=== PATIENT | female | born 1995 | race African-American/Black ===

== ENCOUNTER 2018-05-13 01:24 | Emergency (ER) | payer OTHER ==
[~2018-05-13] VITALS: Ht 162.6 cm; Wt 61.8 kg
[2018-05-13 01:56] LABS: BASO # 0.1 10^3/uL (0.0-0.2); BASO % 0.7 % (0.0-1.0); EOS # 0.2 10^3/uL (0.0-0.50); EOS % 2.8 % (0.0-3.0); HEMATOCRIT 38.2 % (36.0-47.0); HEMOGLOBIN 12.4 g/dl (12.0-15.5); MEAN CORPUSCULAR HEMOGLOBIN 26.9 pg (27.0-33.0); MEAN CORPUSCULAR HGB CONC 32.5 g/dl (32.0-36.5); MEAN CORPUSCULAR VOLUME 82.9 fl (80.0-96.0); MONO # 0.6 10^3/uL (0.0-0.8); MONO % 8.1 % (0.0-5.0); NEUTROPHILS # 3.7 10^3/uL (1.8-7.7); NEUTROPHILS % 49.3 % (36.0-66.0); PLATELET COUNT, AUTOMATED 283 10^3/uL (150-450); RED BLOOD COUNT 4.61 10^6/uL (4.00-5.40); WHITE BLOOD COUNT 7.6 10^3/uL (4.0-10.0)
[2018-05-13 03:54] LABS: CHLAMYDIA DNA AMPLIFICATION NEGATIVE (NEGATIVE); GC DNA AMPLIFICATION NEGATIVE (NEGATIVE)
--- NOTE | 2018-05-13 04:15 | REPVR ---
EXAM: US First Trimester, Transabdominal EXAM DATE/TIME: 05/13/2018 3:17 AM CLINICAL HISTORY: 22 years old, female; Signs and symptoms; Lmp or gestational age (in weeks): 04/04/2019; Other: Bleeding and cramping; Patient HX: Quant <10; Additional info: Vaginal bleeding TECHNIQUE: Real-time transabdominal obstetrical ultrasound of the maternal pelvis and a first trimester , less than 14 weeks 0 days, with image documentation. COMPARISON: No relevant prior studies available. FINDINGS: GESTATION: Gestation: No gestational sac is seen. MATERNAL: Uterus: The uterus measures 7.6 cm in its cephalocaudad dimension and 3.0 x 4.3 cm in its AP and lateral dimensions. The endometrium measures 6 mm. No intrauterine gestational sac is seen. Cervix: Unremarkable. Right adnexa: The right ovary measures 3.0 x 2.4 x 1.8 cm and demonstrates blood flow with a resistive index of 0.59. Left adnexa: The left ovary measures 2.5 x 1.6 x 1.5 cm and demonstrates blood flow with a resistive index of 0.61. Intraperitoneal: No intraperitoneal free fluid. IMPRESSION: 1. No intrauterine gestational sac is seen. Findings may reflect recent spontaneous AB or very early intrauterine gestation. Ectopic is not excluded. Serial beta-hCG levels may be of benefit. 2. Otherwise negative pelvic sonogram. Electronically signed by: Fabrice Will On 05/13/2018 04:14:27 AM
[2018-05-13 04:46] VITALS: BP 108/71
== END 2018-05-13 04:56 | disposition home or self-care (01) ==
LOC: M ED 01:24
DX: O20.0 Threatened abortion (principal); Z87.59 Personal history of other complications of pregnancy, childbirth and the puerperium; O99.519 Diseases of the respiratory system complicating pregnancy, unspecified trimester

== ENCOUNTER 2019-01-02 21:24 | Emergency (ER) | payer OTHER ==
[~2019-01-02] VITALS: Ht 162.6 cm; Wt 71.4 kg
[2019-01-02 21:25] VITALS: BP 122/65
== END 2019-01-02 22:17 | disposition left against medical advice (07) ==
LOC: M ED 21:24
DX: Z53.21 Procedure and treatment not carried out due to patient leaving prior to being seen by health care provider (principal)

== ENCOUNTER → 2019-01-03 | Outpatient (REF) | payer OTHER ==
[2019-01-03 18:43] LABS: CHLAMYDIA DNA AMPLIFICATION NEGATIVE (NEGATIVE); GC DNA AMPLIFICATION NEGATIVE (NEGATIVE)
== END ==
LOC: M LAB REF 16:18
PROVIDERS: ATTEND Physician Assistant
DX: Z11.3 Encounter for screening for infections with a predominantly sexual mode of transmission (principal)

== ENCOUNTER → 2019-02-19 | Outpatient (CLI) | payer OTHER ==
--- NOTE | 2019-02-19 15:50 | REP ---
Third trimester obstetric ultrasound for size/date discrepancy: There is a single intrauterine gestation in a vertex presentation. There is movement and cardiac activity. The heart rate is 132 beats per minute. The placenta is fundal. There is no previa or abruptio. The placenta is grade II. Subjectively the amniotic fluid volume is normal. The amniotic fluid index is 15.5 (7.7 - 24.9). The cervix measures 2.7 cm length. By today's ultrasound the gestational age is 33 weeks 5 days/OTTONIEL 04/04/2019. By LMP gestational age is 36 weeks 1 day/OTTONIEL 03/18/2019. weight is 2196 grams/4 pounds, 13 ounces. This is the 8th percentile for 36 weeks 1 day. Umbilical artery Doppler assessment: S/D ratio 2.50 (2.30-3.30) Resistive Index 0.60 (0.59-0.75 Diastolic Velocity 17.8 (>10 cm/sec) Survey of anatomy is unremarkable except that the choroid plexus, cerebellum and upper extremities could not be adequately demonstrated because of position. Electronically Signed by Pete Holguin MD 02/19/2019 03:42 P
== END ==
LOC: M RAD 14:13
PROVIDERS: ATTEND Registered Nurse Maternal Newborn
DX: Z34.83 Encounter for supervision of other normal pregnancy, third trimester (principal); Z3A.36 36 weeks gestation of pregnancy

== ENCOUNTER → 2019-02-28 | Outpatient (CLI) | payer OTHER ==
--- NOTE | 2019-02-28 08:28 | REP ---
Clinical: well-being Comparison: 02/19/2019 . Findings: Examination demonstrates a single live intrauterine in cephalic presentation. motion is identified by technologist. Placenta is noted posterior and grade I I without evidence for placenta previa or abruption. Amniotic fluid volume is normal. Cervix measures 2.7 cm in length and appears closed. No evidence for nuchal cord. Gestational age by LMP 37 weeks 3 days with OTTONIEL 03/18/2019 . Gestational age by current measurements 34 weeks 5 days with OTTONIEL 04/06/2019 . FHR equals 157 beats per minute. BPD 8.6 cm 34 weeks 5 days HC 30.4 cm 33 weeks 5 days AC 31.4 cm 35 weeks 2-day FL 6.8 cm 35 weeks 0 days HL 6.0 cm 35 weeks 0 days HC/AC ratio 0.97 Estimated weight 2568 grams ( 17th percentile). Amniotic fluid index: 8.8 cm (7.4 - 24.2) Umbilical cord SD ratio: 2.74 (1.60 - 2.60) MCA SD ratio: 3.11 MCA RI: 0.68 Impression: Single live intrauterine in cephalic presentation demonstrating appropriate interval growth. Electronically Signed by Danielito Valenzuela MD 02/28/2019 08:19 A
== END ==
LOC: M RAD 07:05
PROVIDERS: ATTEND Registered Nurse Maternal Newborn
DX: Z34.83 Encounter for supervision of other normal pregnancy, third trimester (principal)

== ENCOUNTER 2019-03-24 21:58 | Outpatient (CLI) | payer OTHER ==
[~2019-03-24] VITALS: Ht 162.6 cm; Wt 78.3 kg
[2019-03-24 22:08] VITALS: BP 136/70
[2019-03-24] MEDS ORDERED: IRON1TAB2 PO (22:11)
[2019-03-24] MEDS ORDERED: MULTTAB20 PO (22:11)
[2019-03-24] MEDS ORDERED: VITA250T4 PO (22:11)
--- NOTE | 2019-03-24 23:20 | IPNPDOC ---
Text Note Date of Service The patient was seen on 03/24/19. NOTE patient is a 23 yo @ 40+6WKS gestation presents with concern for vaginal bleeding. reports light bleeding when she goes to bathroom. feeling irregular mild contractions. +FM. vitals: normal NAD abd: gravid, soft, nt, cephalic by jerry fht: 145/mod lb/pos accel/no decel toco: ctx q 7mins ce (nursing exam): 2/50/-2, no blood noted. a/p patient in latent labor. discussed return precautions. return when having regular contractions. she has scheduled induction for tomorrow. DO Ginette VS,Ramone, I+O VS, Fishbone, I+O Vital Signs Date Time Temp Pulse Resp B/P (MAP) Pulse Ox O2 Delivery O2 Flow Rate FiO2 03/24/19 22:08 98.6 71 16 136/70 (92) MIGUEL WORLEY DO Mar 24, 2019 23:20
[2019-03-27] MEDS ORDERED: ACET1TAB55 PO (07:22)
[2019-03-27] MEDS ORDERED: IBUP80TA PO (07:22)
== END 2019-03-24 23:20 | disposition home or self-care (01) ==
LOC: M LDO 21:58
PROVIDERS: ATTEND Obstetrics & Gynecology
DX: O26.853 Spotting complicating pregnancy, third trimester (principal); Z3A.40 40 weeks gestation of pregnancy
CPT/HCPCS: 59025; G0378; G0463

== ENCOUNTER → 2019-09-29 | Outpatient (REF) | payer OTHER ==
[~2019-09-29] MED LIST: ACET1TAB55 PO; IBUP80TA PO; IRON1TAB2 PO; MULTTAB20 PO; VITA250T4 PO
[2019-09-29 17:31] LABS: APPEARANCE, URINE CLOUDY (CLEAR); BACTERIA, URINE AUTO NEGATIVE (NEGATIVE); BILIRUBIN, URINE AUTO NEGATIVE (NEGATIVE); BLOOD, URINE BLOOD 3+ (NEGATIVE); COLOR, URINE YELLOW (YELLOW); GLUCOSE, URINE (UA) AUTO NEGATIVE (NEGATIVE); KETONE, URINE AUTO NEGATIVE (NEGATIVE); LEUKOCYTE ESTERASE, URINE AUTO 2+ (NEGATIVE); MUCUS, URINE SMALL (NEGATIVE); NITRITE, URINE AUTO NEGATIVE (NEGATIVE); PROTEIN, URINE AUTO 2+ mg/dL (NEGATIVE); RBC, URINE AUTO 161 /HPF (0-3); SPECIFIC GRAVITY URINE AUTO 1.025 (1.002-1.035); SQUAMOUS EPITHELIAL CELL UR AU 9 /HPF (0-6); UROBILINOGEN, URINE AUTO 0.2 mg/dL (0.0-2.0); WBC, URINE AUTO 156 /HPF (0-3)
== END ==
LOC: M LAB REF 16:20
PROVIDERS: ATTEND Physician Assistant Medical
DX: N39.0 Urinary tract infection, site not specified (principal)

== ENCOUNTER → 2019-12-17 | Outpatient (REF) | payer OTHER | LOC: M LAB REF 09:33 | PROVIDERS: ATTEND Physician Assistant | DX: Z03.818 Encounter for observation for suspected exposure to other biological agents ruled out (principal); Z11.59 Encounter for screening for other viral diseases ==

== ENCOUNTER → 2020-01-22 | Outpatient (REF) | payer OTHER ==
[2020-01-22 21:20] LABS: CHLAMYDIA DNA AMPLIFICATION NEGATIVE (NEGATIVE); GC DNA AMPLIFICATION NEGATIVE (NEGATIVE)
== END ==
LOC: M LAB REF 15:00
PROVIDERS: ATTEND Physician Assistant
DX: N89.8 Other specified noninflammatory disorders of vagina (principal)